=== PATIENT | female | born 1985 | race Caucasian/White ===

== ENCOUNTER → 2016-06-18 | Outpatient (CLI) | payer BC, MEDICAID ==
[2016-06-18 18:22] LABS: BASO % 0.3 % (0.0-1.0); EOS # 0.1 K/mm3 (0.0-0.50); EOS % 1.4 % (0.0-3.0); LARGE UNSTAINED CELL # 0.1 K/mm3 (0.0-0.4); LARGE UNSTAINED CELL % 1.3 % (0.0-4.0); LYMPH # 1.2 K/mm3 (1.5-4.5); LYMPH % 12.8 % (24.0-44.0); MEAN CORPUSCULAR HEMOGLOBIN 30.8 pg (27.0-33.0); MEAN CORPUSCULAR HGB CONC 32.4 g/dl (32.0-36.5); MEAN CORPUSCULAR VOLUME 95.1 fl (80.0-96.0); MONO # 0.4 K/mm3 (0.0-0.8); MONO % 4.4 % (0.0-5.0); NEUTROPHILS # 7.3 K/mm3 (1.8-7.7); NEUTROPHILS % 79.8 % (36.0-66.0); PLATELET COUNT, AUTOMATED 206 k/mm3 (150-450); RED CELL DISTRIBUTION WIDTH 13.1 % (11.5-14.5); WHITE BLOOD COUNT 9.2 K/mm3 (4.0-10.0)
== END ==
LOC: M SMT 10:50
PROVIDERS: ATTEND Advanced Practice Midwife
DX: Z34.82 Encounter for supervision of other normal pregnancy, second trimester (principal)

== ENCOUNTER → 2016-08-20 | Outpatient (REF) | payer BC, MEDICAID | LOC: M LAB REF 13:18 | PROVIDERS: ATTEND Advanced Practice Midwife | DX: Z36 Encounter for antenatal screening of mother (principal) ==

== ENCOUNTER 2016-09-12 22:21 | Inpatient (IN) | payer BC, MEDICAID ==
[~2016-09-12] VITALS: Ht 160 cm; Wt 65.0 kg
[2016-09-12 22:37] VITALS: BP 142/83
[2016-09-12] MEDS ORDERED: LR 1,000 ML IV SCH (23:12)
[2016-09-12] MEDS ORDERED: OXYTOCIN DRIP 30 UNITS in APPROPRIATE DILUENT 1 EA IV SCH (23:15)
[2016-09-12 23:40] LABS: MEAN CORPUSCULAR HEMOGLOBIN 32.3 pg (27.0-33.0); MEAN CORPUSCULAR VOLUME 92.3 fl (80.0-96.0); RED CELL DISTRIBUTION WIDTH 13.7 % (11.5-14.5); WHITE BLOOD COUNT 10.2 K/mm3 (4.0-10.0)
[2016-09-12 23:58] VITALS: BP 124/81
[2016-09-13] VITALS (19 sets, daily range): BP systolic 109–144; BP diastolic 58–98
[2016-09-13 00:10] LABS: ALT/SGPT 14 U/L (12-78); AST/SGOT 19 U/L (15-37); BILIRUBIN,TOTAL 0.4 MG/DL (0.2-1.0); CREATININE FOR GFR 0.63 MG/DL (0.55-1.02); GLOMERULAR FILTRATION RATE > 60.0 (>60); URIC ACID 6.5 MG/DL (2.6-6.0)
[2016-09-13] MEDS ORDERED: PREN1TAB11 PO (01:21)
[2016-09-13] MEDS ORDERED: FENTANYL 2MCG/ML ROPIVACAINE 0.2% IN 0.9% NACL 200ML IVBAG As Ordered ONE (01:31)
[2016-09-13] MEDS ORDERED: EPIDURAL COMMENT XX SCH (03:30)
[2016-09-13] MEDS ORDERED: diphenhydrAMINE INJ 50MG/ML VIAL (J1200) IV PRN (03:30)
[2016-09-13] MEDS ORDERED: FENTANYL/ROPIVACAINE/NACL BAG 200 ML EPIDURAL SCH (03:30)
[2016-09-13] MEDS ORDERED: LACTATED RINGER'S 1000 ML IV PRN (03:30)
[2016-09-13] MEDS ORDERED: ONDANSETRON 4MG/2ML VIAL (J2405) IV PRN (03:30)
[2016-09-13] MEDS ORDERED: ePHEDrine SULFATE 25 MG/5 ML(5MG/ML) SYRINGE IV PRN (03:30)
[2016-09-13] MEDS ORDERED: EPIDURAL/PCA KEYS XX PRN (03:30)
[2016-09-13] MEDS ORDERED: NALOXONE INJ 0.4 MG/1 ML VIAL (J2310) IV PRN (03:30)
[2016-09-13] MEDS ORDERED: REFRIGERATOR IV KEYS XX PRN (03:30)
[2016-09-13] MEDS ORDERED: DOCUSATE SODIUM 100 MG CAP PO PRN (04:45)
[2016-09-13] MEDS ORDERED: MEASLES,MUMPS,RUBELLA VACCINE INJ (MMR-II) (90707) SC SCH (04:45)
[2016-09-13] MEDS ORDERED: DIBUCAINE 1% OINTMENT 30GM TOP PRN (04:45)
[2016-09-13] MEDS ORDERED: RHOGAM 300 MCG (1500 IU) INJ (J2790) IM SCH (04:45)
[2016-09-13] MEDS ORDERED: ANUSOL HC CREAM 30GM TOP PRN (04:45)
[2016-09-13] MEDS ORDERED: OXYTOCIN DRIP 30 UNITS in APPROPRIATE DILUENT 1 EA IV SCH (04:45)
[2016-09-13] MEDS: PRENATAL VITAMIN TAB PO SCH (09:31)
[2016-09-13] MEDS: IBUPROFEN 800 MG TAB PO PRN ×2 (12:14→21:25)
--- NOTE | 2016-09-13 15:17 | HPE ---
DATE OF ADMISSION: 09/12/2016 Alejandra is a 31-year-old 1, para 0, at 39-5/7 weeks gestation with an estimated date of confinement (EDC) of 09/14/2016 based on last normal menstrual period and confirmed by a first trimester ultrasound. She presents to labor and delivery today with report of spontaneous rupture of membranes of a moderate amount of clear, odorless fluid at 1616. She does report some mild contractions that started soon thereafter. Does have some pink bloody show. Has continued to leak fluid, and the fetus has been active. care was initiated at [facility] in the first trimester. course has been uncomplicated. OBSTETRICAL HISTORY: Primigravida. OBSTETRICAL LABORATORIES: Blood type A positive, antibody screen negative. Pap was normal. Rubella immune, VDRL nonreactive. Urine culture: No growth. Hepatitis B surface antigen negative, HIV negative, hepatitis C antibody negative, gonorrhea and chlamydia negative. She did decline all genetic serum screening markers. Gestational diabetic screening 123 and GBS is negative. PAST MEDICAL HISTORY: 1. Abnormal Pap smear. 2. Reported difficulty coming out of anesthesia. 3. Childhood varicella. SURGERIES: 1. Breast augmentation. 2. Colposcopy. FAMILY HISTORY: Varicose vein, glioblastoma. SOCIAL HISTORY: The patient is . Her is at bedside and supportive as well as other family members. She is a nonsmoker. Denies alcohol and drug use. She denies history of sexually transmitted disease (STDs). Denies history of abuse, physical, sexual and emotional. ALLERGIES: CIPRO. CURRENT MEDICATIONS: Include vitamin. OBJECTIVE: Temperature 97.7, pulse 70, respirations 18, blood pressure elevated at 142/83 and repeat was 141/91. Her abdomen is gravid, cephalic presentation. Estimated weight 7 pounds. Sterile vaginal exam: 2 cm dilated, 90% effaced, -2 station. heart rate category 1, 135, moderate variability, positive excels. No decelerations observed. ASSESSMENT: Intrauterine at 39-5/7 weeks. heart rate category 1. Spontaneous rupture of membranes. Early latent labor. Rule out pre-eclampsia. PLAN: Admit the patient to labor and delivery. Labs as ordered. Out of bed. Clear liquid diet. Pre-eclamptic profile and a spot urine have been ordered. The patient desired an epidural for labor coping, so I plan to start intravenous (IV) Pitocin to augment her labor. I do anticipate active labor, continued progress, and a spontaneous vaginal delivery.
--- NOTE | 2016-09-13 15:17 | DN ---
DATE: 09/13/2016 Alejandra is a 31-year-old, 1, para 1-0-0-1 now, who was admitted to labor and delivery with spontaneous rupture of membranes. IV Pitocin was started and labor did ensue. She did utilize an epidural for her labor coping. She did have a maternal temperature of 101.1 times one in the second stage felt to be related to epidural anesthesia. Fluid remained clear throughout and there was no foul odor at the time of delivery. She pushed to a normal spontaneous vaginal delivery of a live male in occiput anterior (OA) position with restitution to left occiput transverse (LOT) position at 0408. There was a nuchal cord loose times one that was reduced manually at the time of delivery. There was also a left compound hand. The was placed on the maternal abdomen crying and active. His mouth and nares were bulb suctioned. The cord was clamped times two once pulsations ceased and cut by the father of the baby. A spontaneous expulsion of an intact placenta with three-vessel cord by Diana mechanism was at 0417. Uterine hemostasis was achieved with IV Pitocin rapid infusion and uterine fundal massage. Estimated blood loss 300 mL. Perineum and vagina were inspected and noted to have a first-degree midline laceration. The laceration was repaired easily with #3-0 Rapide in the usual fashion. The male weighed 3244 grams, 7 pounds 2 ounces, 9 and 9. Mom plans to breastfeed her son and the family have named him Chuck. At the close of delivery, lap counts, needle counts and instrument counts were correct and verified.
[2016-09-13] MEDS: ACETAMINOPHEN 500 MG TAB PO PRN (17:29)
[2016-09-14] MEDS: ACETAMINOPHEN 500 MG TAB PO PRN ×2 (04:39→19:03)
[2016-09-14] MEDS: IBUPROFEN 800 MG TAB PO PRN ×3 (06:09→23:43)
[2016-09-14 06:13] VITALS: BP 119/74
[2016-09-14] MEDS: PRENATAL VITAMIN TAB PO SCH (13:24)
[2016-09-14 18:00] VITALS: BP 121/59
[2016-09-15 05:33] VITALS: BP 110/68
[2016-09-15] MEDS: ACETAMINOPHEN 500 MG TAB PO PRN (06:32)
[2016-09-15] MEDS ORDERED: ACET50TA PO (07:34)
[2016-09-15] MEDS ORDERED: IBUP-1114 PO (07:35)
[2016-09-15] MEDS: PRENATAL VITAMIN TAB PO SCH (08:10)
[2016-09-15] MEDS: IBUPROFEN 800 MG TAB PO PRN (08:55)
== END 2016-09-15 11:15 | disposition home or self-care (01) | DRG 560 ==
LOC: M LDO 22:21 → M LDI 23:09 → M OBS 09-13 06:21
PROVIDERS: ADMIT Advanced Practice Midwife; ATTEND Advanced Practice Midwife
PROC: 10E0XZZ Delivery of Products of Conception, External Approach (ICD-10-PCS; principal; 2016-09-13)
PROC: 0HQ9XZZ Repair Perineum Skin, External Approach (ICD-10-PCS; 2016-09-13)
DX: O69.82X0 Labor and delivery complicated by other cord entanglement, without compression, not applicable or unspecified (principal); O70.0 First degree perineal laceration during delivery; Z37.0 Single live birth; Z3A.39 39 weeks gestation of pregnancy

== ENCOUNTER → 2017-08-11 | Outpatient (REF) | payer OTHER ==
[2017-08-14 00:07] LABS: HPV HYBRID CAPTURE II Negative (Negative)
== END ==
LOC: M LAB REF 14:31
DX: Z12.4 Encounter for screening for malignant neoplasm of cervix (principal)

== ENCOUNTER → 2018-12-07 | Outpatient (REF) | payer OTHER ==
[~2018-12-07] MED LIST: IBUP-1114 PO; MAPA500T2 PO; PREN1TAB11 PO
[2018-12-11 14:09] LABS: HPV HYBRID CAPTURE II Negative (Negative)
== END ==
LOC: M LAB REF 17:13
PROVIDERS: ATTEND Advanced Practice Midwife
DX: Z12.4 Encounter for screening for malignant neoplasm of cervix (principal)
CPT/HCPCS: 87624; G0123

== ENCOUNTER → 2019-03-01 | Outpatient (CLI) | payer OTHER | LOC: M WUC 16:08 | PROVIDERS: ATTEND Advanced Practice Midwife | DX: O20.0 Threatened abortion (principal); Z3A.00 Weeks of gestation of pregnancy not specified ==

== ENCOUNTER → 2019-03-03 | Outpatient (CLI) | payer OTHER | LOC: M WUC 15:51 | PROVIDERS: ATTEND Advanced Practice Midwife | DX: O20.0 Threatened abortion (principal); Z3A.00 Weeks of gestation of pregnancy not specified ==

== ENCOUNTER → 2019-03-16 | Outpatient (CLI) | payer OTHER | LOC: M WUC 11:00 | PROVIDERS: ATTEND Advanced Practice Midwife | DX: O20.0 Threatened abortion (principal) ==

== ENCOUNTER → 2019-03-23 | Outpatient (CLI) | payer OTHER | LOC: M WUC 16:25 | PROVIDERS: ATTEND Advanced Practice Midwife | DX: O20.0 Threatened abortion (principal); Z3A.00 Weeks of gestation of pregnancy not specified ==

== ENCOUNTER → 2020-03-13 | Outpatient (REF) | payer OTHER | LOC: M SFHCWAGY 10:25 | PROVIDERS: ATTEND Advanced Practice Midwife | DX: Z12.4 Encounter for screening for malignant neoplasm of cervix (principal); Z01.419 Encounter for gynecological examination (general) (routine) without abnormal findings ==

== ENCOUNTER → 2021-02-12 | Outpatient (CLI) | payer OTHER ==
[2021-02-12 11:24] LABS: HEMATOCRIT 41.5 % (36.0-47.0); HEMOGLOBIN 13.9 g/dl (12.0-15.5); MEAN CORPUSCULAR HEMOGLOBIN 30.3 pg (27.0-33.0); MEAN CORPUSCULAR HGB CONC 33.5 g/dl (32.0-36.5); MEAN CORPUSCULAR VOLUME 90.4 fl (80.0-96.0); PLATELET COUNT, AUTOMATED 273 10^3/uL (150-450); RED BLOOD COUNT 4.59 10^6/uL (4.00-5.40); WHITE BLOOD COUNT 7.9 10^3/uL (4.0-10.0)
[2021-02-12 12:34] LABS: HIV 1&2 SCREEN CENTAUR NEGATIVE (NEGATIVE)
[2021-02-12 12:54] LABS: GC DNA AMPLIFICATION NEGATIVE (NEGATIVE)
== END ==
LOC: M PLALAB 09:05
PROVIDERS: ATTEND Advanced Practice Midwife
DX: O09.529 Supervision of elderly multigravida, unspecified trimester (principal)

== ENCOUNTER → 2021-04-05 | Outpatient (CLI) | payer OTHER ==
--- NOTE | 2021-04-05 14:59 | REP ---
INDICATION: ANATOMY COMPARISON: None. TECHNIQUE: Transabdominal obstetrical ultrasound with color Doppler evaluation. FINDINGS: Examination demonstrates a single live intrauterine in variable presentation. motion is identified by technologist. Placenta is noted anterior and grade 1 without evidence for placenta previa or abruption. Amniotic fluid volume is normal. Cervix measures 3.2 cm in length and appears closed.. Selected gestational age: 19 weeks 2 days with ADARSH 08/28/2021. Gestational age by current measurements 19 weeks 3 days with ADARSH 08/27/2021. FHR equals 140 beats per minute. Estimated weight 290 grams (52ndpercentile). Anatomical assessment demonstrates normal structures including cranium, choroid plexus, cavum, cerebellum/posterior fossa, facial features, lungs, four-chamber heart/ventricular outflow tracts, diaphragm, stomach, cord insertion/three-vessel cord, kidneys/bladder, and extremities. IMPRESSION: Single live intrauterine in variable presentation demonstrating appropriate estimated weight. Limited evaluation of the spine. Remainder of the anatomical assessment is complete and normal. <Electronically signed by Ab Wells > 04/05/21 [id number]
== END ==
LOC: M WHC 12:51
PROVIDERS: ATTEND Obstetrics & Gynecology
DX: O09.522 Supervision of elderly multigravida, second trimester (principal); Z3A.19 19 weeks gestation of pregnancy

== ENCOUNTER → 2021-04-30 | Outpatient (CLI) | payer OTHER | LOC: M WHC 07:00 | PROVIDERS: ATTEND Obstetrics & Gynecology | DX: O09.522 Supervision of elderly multigravida, second trimester (principal); Z3A.22 22 weeks gestation of pregnancy; O32.1XX0 Maternal care for breech presentation, not applicable or unspecified ==

== ENCOUNTER → 2021-05-27 | Outpatient (CLI) | payer OTHER ==
[2021-05-27 14:15] LABS: HEMATOCRIT 34.4 % (36.0-47.0); HEMOGLOBIN 11.3 g/dl (12.0-15.5); MEAN CORPUSCULAR HEMOGLOBIN 31.3 pg (27.0-33.0); MEAN CORPUSCULAR HGB CONC 32.8 g/dl (32.0-36.5); MEAN CORPUSCULAR VOLUME 95.3 fl (80.0-96.0); PLATELET COUNT, AUTOMATED 217 10^3/uL (150-450); RED BLOOD COUNT 3.61 10^6/uL (4.00-5.40); WHITE BLOOD COUNT 10.3 10^3/uL (4.0-10.0)
== END ==
LOC: M PLALAB 08:41
PROVIDERS: ATTEND Obstetrics & Gynecology
DX: Z34.82 Encounter for supervision of other normal pregnancy, second trimester (principal); O09.522 Supervision of elderly multigravida, second trimester; Z3A.26 26 weeks gestation of pregnancy

== ENCOUNTER → 2021-07-30 | Outpatient (REF) | payer OTHER, MEDICAID | LOC: M PLALAB 08:04 | PROVIDERS: ATTEND Advanced Practice Midwife | DX: Z34.93 Encounter for supervision of normal pregnancy, unspecified, third trimester (principal) ==

== ENCOUNTER 2021-08-25 06:25 | Inpatient (IN) | payer OTHER, MEDICAID ==
[~2021-08-25] VITALS: Ht 162.6 cm; Wt 76.5 kg
[2021-08-25] VITALS (15 sets, daily range): BP systolic 130–189; BP diastolic 71–106
[2021-08-25] MEDS ORDERED: HOME MED LIST COMPLETE! XX SCH (06:50)
[2021-08-25] MEDS ORDERED: CARBOPROST TROMETHAMINE 250 MCG/ML AMP IM PRN (07:20)
[2021-08-25] MEDS ORDERED: TRANEXAMIC ACID INJection 1,000 MG in NS 100 ML IV PRN (07:20)
[2021-08-25] MEDS ORDERED: OXYTOCIN DRIP 30 UNITS in IV 1 EA IV PRN ×4 (07:20)
[2021-08-25] MEDS ORDERED: METHYLERGONOVINE MALEATE 0.2 MG/ML VIAL (J2210) IM PRN (07:20)
[2021-08-25] MEDS ORDERED: LACTATED RINGER'S 1000 ML IV PRN (07:20)
[2021-08-25] MEDS ORDERED: LIDOCAINE 1% MDV 20ML VIAL INFIL PRN (07:20)
[2021-08-25 07:54] LABS: MEAN CORPUSCULAR HEMOGLOBIN 26.8 pg (27.0-33.0); MEAN CORPUSCULAR HGB CONC 32.4 g/dl (32.0-36.5); MEAN CORPUSCULAR VOLUME 82.9 fl (80.0-96.0); PLATELET COUNT, AUTOMATED 151 10^3/uL (150-450); WHITE BLOOD COUNT 8.7 10^3/uL (4.0-10.0)
[2021-08-25 08:30] LABS: ALT/SGPT 12 U/L (12-78); BLOOD UREA NITROGEN 15 MG/DL (7-18); CALCIUM LEVEL 9.7 MG/DL (8.5-10.1); CARBON DIOXIDE LEVEL 21 MEQ/L (21-32); CHLORIDE LEVEL 106 MEQ/L (98-107); CREATININE FOR GFR 0.72 MG/DL (0.55-1.30); GLOMERULAR FILTRATION RATE > 60.0 (>60); GLUCOSE, FASTING 72 MG/DL (70-100); POTASSIUM SERUM 4.6 MEQ/L (3.5-5.1); SODIUM LEVEL 137 MEQ/L (136-145)
[2021-08-25 08:31] LABS: ALBUMIN 2.9 GM/DL (3.2-5.2); BILIRUBIN,TOTAL 0.2 MG/DL (0.2-1.0); TOTAL PROTEIN 6.4 GM/DL (6.4-8.2)
[2021-08-25] MEDS: PRENATAL VITAMINS CHEWABLE TABLET PO SCH (09:00)
[2021-08-25] MEDS ORDERED: ACETAMINOPHEN 500 MG TAB PO PRN (09:40)
[2021-08-25] MEDS ORDERED: METHYLERGONOVINE MALEATE 0.2 MG TAB PO PRN (09:40)
[2021-08-25] MEDS ORDERED: DIBUCAINE 1% OINTMENT 30GM TOP PRN (09:40)
[2021-08-25] MEDS ORDERED: DOCUSATE SODIUM 100MG CAPSULE PO PRN (09:40)
[2021-08-25] MEDS ORDERED: MEASLES,MUMPS,RUBELLA VACCINE INJ (MMR-II) (90707) SC SCH (09:40)
[2021-08-25] MEDS ORDERED: RHOGAM 300 MCG (1500 IU) INJ (J2790) IM SCH (09:40)
[2021-08-25] MEDS: IBUPROFEN 600MG TAB PO PRN ×4 (09:53→22:22)
[2021-08-26] MEDS: IBUPROFEN 600MG TAB PO PRN ×2 (05:23→12:08)
[2021-08-26 06:00] VITALS: BP 143/84
[2021-08-26] MEDS: PRENATAL VITAMINS CHEWABLE TABLET PO SCH (09:38)
== END 2021-08-26 15:30 | disposition home or self-care (01) | DRG 807 ==
LOC: M LDO 06:25 → M LDI 07:18 → M OBS 14:04
PROVIDERS: ADMIT Obstetrics & Gynecology; ATTEND Obstetrics & Gynecology
PROC: 10E0XZZ Delivery of Products of Conception, External Approach (ICD-10-PCS; principal; 2021-08-25)
DX: O69.81X0 Labor and delivery complicated by cord around neck, without compression, not applicable or unspecified (principal); Z37.0 Single live birth; Z3A.39 39 weeks gestation of pregnancy; O09.523 Supervision of elderly multigravida, third trimester; O70.0 First degree perineal laceration during delivery

== ENCOUNTER → 2023-01-20 | Outpatient (REF) | payer OTHER | LOC: M WUC 20:56 | PROVIDERS: ATTEND Physician Assistant | DX: R30.0 Dysuria (principal) ==

== ENCOUNTER → 2023-02-17 | Outpatient (REF) | payer OTHER, MEDICAID | LOC: M SFHCWAGY 17:12 | PROVIDERS: ATTEND Advanced Practice Midwife | DX: Z12.4 Encounter for screening for malignant neoplasm of cervix (principal); Z77.9 Other contact with and (suspected) exposures hazardous to health; R87.610 Atypical squamous cells of undetermined significance on cytologic smear of cervix (ASC-US) | CPT/HCPCS: 87624; G0123 ==

== ENCOUNTER → 2023-08-18 | Outpatient (CLI) | payer MEDICAID, OTHER ==
[~2023-08-18] MED LIST changes: +METHACHOLINE KIT (6 VIAL.NEB PREMIX) INH ONE
== END ==
LOC: M CARPUL 13:24
PROVIDERS: ATTEND Nurse Practitioner Family
DX: R06.02 Shortness of breath (principal)
CPT/HCPCS: 94070; J7674

== ENCOUNTER → 2024-03-24 | Outpatient (CLI) | payer OTHER ==
[~2024-03-24] MED LIST changes: -METHACHOLINE KIT (6 VIAL.NEB PREMIX) INH ONE
== END ==
LOC: M WUC 14:15
PROVIDERS: ATTEND Nurse Practitioner Family
DX: R05.9 Cough, unspecified (principal)

== ENCOUNTER → 2024-07-12 | Outpatient (REF) | payer OTHER ==
[2024-07-15 15:12] LABS: HPV APTIMA Not Detected (Not Detected)
== END ==
LOC: M SFHCWAGY 13:16
PROVIDERS: ATTEND Advanced Practice Midwife
DX: Z12.4 Encounter for screening for malignant neoplasm of cervix (principal); R87.610 Atypical squamous cells of undetermined significance on cytologic smear of cervix (ASC-US)
CPT/HCPCS: 87624; G0123

== ENCOUNTER → 2024-09-09 | Outpatient (CLI) | payer OTHER ==
[2024-09-09 10:49] LABS: BASO % 0.2 % (0.0-1.0); EOS # 0.1 10^3/uL (0.0-0.5); EOS % 1.8 % (0.0-3.0); HEMATOCRIT 40.8 % (36.0-47.0); HEMOGLOBIN 13.4 g/dl (12.0-15.5); LYMPH # 1.2 10^3/uL (1.5-5.0); LYMPH % 23.6 % (24.0-44.0); MEAN CORPUSCULAR HEMOGLOBIN 30.9 pg (27.0-33.0); MEAN CORPUSCULAR HGB CONC 32.8 g/dl (32.0-36.5); MEAN CORPUSCULAR VOLUME 94.2 fl (80.0-96.0); MONO # 0.4 10^3/uL (0.0-0.8); MONO % 7.2 % (2.0-8.0); NEUTROPHILS # 3.3 10^3/uL (1.5-8.5); PLATELET COUNT, AUTOMATED 261 10^3/uL (150-450); RED BLOOD COUNT 4.33 10^6/uL (4.00-5.40)
[2024-09-09 10:51] LABS: ALBUMIN 4.5 G/DL (3.2-5.2); ALKALINE PHOSPHATASE 43 U/L (35-104); ALT/SGPT 14 U/L (7.0-40); APPEARANCE, URINE HAZY (CLEAR); AST/SGOT 14 U/L (<34); BACTERIA, URINE AUTO 1+ (NEGATIVE); BILIRUBIN, URINE AUTO NEGATIVE (NEGATIVE); BLOOD UREA NITROGEN 15 MG/DL (9-23); BLOOD, URINE BLOOD NEGATIVE (NEGATIVE); CARBON DIOXIDE LEVEL 28 MMOL/L (20-31); CHLORIDE LEVEL 105 MMOL/L (98-107); CHOLESTEROL LEVEL 187 MG/DL (<200); COLOR, URINE YELLOW (YELLOW); CREATININE FOR GFR 0.79 MG/DL (0.55-1.30); GLOMERULAR FILTRATION RATE > 90.0 (>60); GLUCOSE, FASTING 92 MG/DL (60-100); GLUCOSE, URINE (UA) AUTO NEGATIVE (NEGATIVE); HDL CHOLESTEROL 66.7 MG/DL (>40); KETONE, URINE AUTO NEGATIVE (NEGATIVE); LDL CHOLESTEROL 103.1 MG/DL (<100); LEUKOCYTE ESTERASE, URINE AUTO TRACE (NEGATIVE); MUCUS, URINE SMALL (NEGATIVE); NITRITE, URINE AUTO NEGATIVE (NEGATIVE); NON-HDL-C 120.3 MG/DL; POTASSIUM SERUM 4.6 MMOL/L (3.5-5.1); PROTEIN, URINE AUTO NEGATIVE (NEGATIVE); RBC, URINE AUTO 2 /HPF (0-3); SODIUM LEVEL 141 MMOL/L (136-145); SPECIFIC GRAVITY URINE AUTO 1.019 (1.002-1.035); SQUAMOUS EPITHELIAL CELL UR AU 4 /HPF (0-6); TOTAL PROTEIN 7.4 G/DL (5.7-8.2); TRIGLYCERIDES LEVEL 86 MG/DL (<150); WBC, URINE AUTO 0 /HPF (0-3)
[2024-09-09 10:52] LABS: THYROID STIMULATING HORMONE 1.894 uIU/ML (0.55-4.78)
== END ==
LOC: M PLALAB 08:47
PROVIDERS: ATTEND Physician Assistant
DX: Z00.00 Encounter for general adult medical examination without abnormal findings (principal); J45.909 Unspecified asthma, uncomplicated

== ENCOUNTER → 2024-09-09 | Outpatient (CLI) | payer OTHER ==
[2024-09-09 10:56] LABS: ESTRADIOL 143.2 PG/ML; PROGESTERONE 13.81 NG/ML; THYROID STIMULATING HORMONE 1.638 uIU/ML (0.55-4.78)
[2024-09-09 10:58] LABS: CORTISOL AM 9.9 UG/DL (4.3-22.4)
== END ==
LOC: M PLALAB 08:49
PROVIDERS: ATTEND Advanced Practice Midwife
DX: R63.5 Abnormal weight gain (principal)